=== PATIENT | male | born 1950 | race Caucasian/White ===

== ENCOUNTER 2017-07-12 13:33 | Inpatient (IN) | payer MEDICARE ==
[~2017-07-12] VITALS: Ht 195.6 cm; Wt 88.4 kg
[2017-07-12 15:01] LABS: Basophils # (auto) 0 uL; Basophils % (auto) 0.7 % (0.0-2.0); Eosinophils # (auto) 0.1 uL; Eosinophils % (auto) 1.2 % (0.0-7.0); Hemoglobin 16.5 g/dL (13.5-17.5); Lymphocytes # (auto) 0.3 uL; Mean Corpuscular Hemoglobin 32.1 pg (28.0-32.0); Mean Corpuscular Hgb Conc. 34.3 g/dL (32.0-36.0); Mean Corpuscular Volume 93.5 fL (80.0-100.0); Monocytes # (auto) 0.7 uL; Monocytes % (auto) 9.9 % (0.0-12.0); Neutrophils # (auto) 5.6 uL; Neutrophils % (auto) 84.2 % (37.0-80.0); Nucleated Red Blood Cells % 0.1 %; Platelet Count (auto) 124 10^3/uL (140-450); Red Blood Cells 5.13 10^6/uL (4.5-5.90); Red Cell Distribution Width 13.3 % (11.8-14.3); White Blood Cell 6.7 10^3/uL (4.4-10.8)
[2017-07-12 15:38] LABS: Albumin 4.2 g/dL (3.4-5.0); BUN/Creatinine Ratio 12.8; Bilirubin, Total 1.3 mg/dL (0.2-1.0); Calcium 8.6 mg/dL (8.5-10.1); Magnesium 2.2 mg/dL (1.6-2.6); Total Protein 8.5 g/dL (6.4-8.2)
[2017-07-12 16:42] LABS: Urine Bacteria NONE SEEN /hpf (None Seen); Urine Blood Negative /uL (Negative); Urine Mucus FEW (None Seen); Urine Specific Gravity 1.019 (1.001-1.035); Urine WBC 1 /hpf (0 - 3)
[2017-07-12] MEDS ORDERED: ASPirin-EC 81 mg tab PO ONE (16:45)
[2017-07-12] MEDS ORDERED: PROMETHAZINE HCL 25 MG/ML 1ML IV ONE (18:45)
[2017-07-12] MEDS ORDERED: ONDANSETRON HCL 4 MG/2 ML VIAL IV PRN (21:00)
[2017-07-12] MEDS ORDERED: MORPHINE SULFATE 4 MG/ML SYR/VIAL IV PRN (21:00)
[2017-07-12] MEDS ORDERED: NITROGLYCERIN 0.4 MG SL TAB SL PRN (21:00)
[2017-07-12] MEDS ORDERED: HYDROcodone-ACET 5/325MG TAB PO PRN (21:00)
[2017-07-12] MEDS ORDERED: ACETAMINOPHEN 500 MG TAB PO PRN (21:00)
[2017-07-12] MEDS ORDERED: METOPROLOL TARTRATE 1MG/1ML-5ML VIAL IV PRN (23:00)
[2017-07-12] MEDS ORDERED: ENOXAPARIN SOD 100 MG/1 ML SYRINGE SC ONE (23:00)
[2017-07-13 05:00] VITALS: BP 138/85
[2017-07-13 06:14] LABS: Hematocrit 46.4 % (41.0-53.0); Mean Corpuscular Hemoglobin 32.2 pg (28.0-32.0); Mean Corpuscular Hgb Conc. 34.4 g/dL (32.0-36.0); Mean Corpuscular Volume 93.7 fL (80.0-100.0); Platelet Count (auto) 122 10^3/uL (140-450); Red Blood Cells 4.95 10^6/uL (4.5-5.90); Red Cell Distribution Width 13.8 % (11.8-14.3)
[2017-07-13] MEDS ORDERED: PNEUMOCOCCAL VACC POLYS 25 MCG/0.5 ML VIAL IM ONE (06:15)
[2017-07-13] MEDS ORDERED: INFLUENZA QUAD 2017-2018 0.5 ML SYRG IM ONE (06:15)
[2017-07-13 06:31] LABS: Band Neutrophils % (manual) 0; Basophils % (manual) 0 (0.0-2.0); Blast Cells 0; Eosinophils % (manual) 0 (0-7); Metamyelocytes % 0; Myelocytes % 0; Promyelocytes % 0; Reactive Lymphocytes 0
[2017-07-13 06:42] LABS: BUN/Creatinine Ratio 10.4; Calcium 8.6 mg/dL (8.5-10.1); Potassium 4.1 mmol/L (3.5-5.1)
[2017-07-13 06:58] LABS: Lymphocytes % (manual) 16 (10.0-50.0); Monocytes % (manual) 23 (0-12)
[2017-07-13 07:45] VITALS: BP 145/72
[2017-07-13 08:00] VITALS: BP 145/72
[2017-07-13] MEDS: APIXABAN 5 MG TAB PO SCH ×2 (16:22→22:34)
[2017-07-13] MEDS: METOPROLOL TARTRATE 25 MG TAB PO SCH ×2 (16:28→22:37)
[2017-07-13 17:03] VITALS: BP 140/88
[2017-07-13 20:00] VITALS: BP 130/73
[2017-07-13 21:57] VITALS: BP 130/73
[2017-07-14] VITALS (7 sets, daily range): BP systolic 91–125; BP diastolic 45–79
[2017-07-14] MEDS: APIXABAN 5 MG TAB PO SCH ×2 (09:26→22:10)
[2017-07-14] MEDS: METOPROLOL TARTRATE 25 MG TAB PO SCH (09:27)
[2017-07-14] MEDS ORDERED: MORPHINE SULFATE 10 MG/ML INJ 1ML SDV IV PRN (15:15)
[2017-07-14] MEDS ORDERED: METOPROLOL TARTRATE 25 MG TAB PO ONE (15:15)
[2017-07-14] MEDS: METOPROLOL SUCCINATE XL 50 MG TAB PO SCH ×2 (20:52→22:00)
[2017-07-15] VITALS (7 sets, daily range): BP systolic 109–136; BP diastolic 58–83
[2017-07-15 07:00] LABS: Basophils # (auto) 0 uL; Basophils % (auto) 0.9 % (0.0-2.0); Eosinophils # (auto) 0 uL; Eosinophils % (auto) 0.2 % (0.0-7.0); Hematocrit 47.7 % (41.0-53.0); Hemoglobin 16.3 g/dL (13.5-17.5); Lymphocytes # (auto) 1.2 uL; Lymphocytes % (auto) 25.5 % (10.0-50.0); Mean Corpuscular Hgb Conc. 34.2 g/dL (32.0-36.0); Mean Corpuscular Volume 93.6 fL (80.0-100.0); Monocytes # (auto) 0.8 uL; Monocytes % (auto) 17.5 % (0.0-12.0); Neutrophils # (auto) 2.7 uL; Neutrophils % (auto) 55.9 % (37.0-80.0); Nucleated Red Blood Cells % 0.3 %; Platelet Count (auto) 118 10^3/uL (140-450); Red Cell Distribution Width 13.4 % (11.8-14.3); White Blood Cell 4.8 10^3/uL (4.4-10.8)
[2017-07-15 07:27] LABS: Albumin 3.8 g/dL (3.4-5.0); BUN/Creatinine Ratio 18.8; Bilirubin, Total 0.9 mg/dL (0.2-1.0); Calcium 8.2 mg/dL (8.5-10.1); Magnesium 2.4 mg/dL (1.6-2.6); Phosphorus 3.8 mg/dL (2.5-4.90); Potassium 4.2 mmol/L (3.5-5.1)
[2017-07-15] MEDS: APIXABAN 5 MG TAB PO SCH ×2 (08:42→22:29)
[2017-07-15] MEDS: METOPROLOL SUCCINATE XL 50 MG TAB PO SCH ×2 (11:08→22:28)
[2017-07-16 05:00] VITALS: BP 104/64
[2017-07-16] MEDS: APIXABAN 5 MG TAB PO SCH ×2 (08:54→22:06)
[2017-07-16] MEDS: METOPROLOL SUCCINATE XL 50 MG TAB PO SCH ×2 (08:55→22:07)
[2017-07-16 08:58] VITALS: BP 116/70
[2017-07-16] MEDS ORDERED: LIDOCAINE VISCOUS 2% 15ML UD PO ONE (10:00)
[2017-07-16] MEDS ORDERED: fentaNYL CITRATE 100 MCG/2 ML VL IV ONE (10:00)
[2017-07-16] MEDS ORDERED: diphenhdrAMINE HCL 50 MG/1 ML VL IV ONE (10:00)
[2017-07-16] MEDS ORDERED: BENZOCAINE (DENTAL) 20 % SPRAY 60ML MT ONE (10:00)
[2017-07-16] MEDS ORDERED: MIDAZOLAM HCL 1MG/1ML-2 ML VIAL IV ONE (10:00)
[2017-07-16] MEDS ORDERED: FLUMAZENIL 0.1 MG/ML INJ 10ML MDV IV ONE (10:10)
[2017-07-16] MEDS ORDERED: NALOXONE HCL 0.4 MG/ML VIAL ONE (10:10)
[2017-07-16 12:00] VITALS: BP 124/75
[2017-07-16 17:00] VITALS: BP 129/79
[2017-07-16 22:00] VITALS: BP 129/80
[2017-07-17 05:41] VITALS: BP 125/70
[2017-07-17 07:07] LABS: Cholesterol 113 mg/dL (< 200); HDL Cholesterol 23 mg/dL (40-59); LDL Cholesterol 86 mg/dL (< 100); Triglycerides 130 mg/dL (< 150)
[2017-07-17 08:00] VITALS: BP 109/51
[2017-07-17] MEDS ORDERED: OSELTAMIVIR 75 MG CAP PO SCH (10:00)
[2017-07-17] MEDS: METOPROLOL SUCCINATE XL 50 MG TAB PO SCH (10:39)
[2017-07-17] MEDS: APIXABAN 5 MG TAB PO SCH (10:39)
[2017-07-17 11:15] VITALS: BP 105/51
== END 2017-07-17 12:38 | disposition home or self-care (01) | DRG 682 ==
LOC: ER 13:33 → TELE 13:34 → EAST 22:35 → TELE-EAST 07-17 00:11
PROVIDERS: ADMIT Nurse Practitioner Family; ATTEND Family Medicine
PROC: 5A2204Z Restoration of Cardiac Rhythm, Single (ICD-10-PCS; principal; 2017-07-16)
DX: N17.0 Acute kidney failure with tubular necrosis (principal); I50.21 Acute systolic (congestive) heart failure; E44.0 Moderate protein-calorie malnutrition; D68.59 Other primary thrombophilia; I42.9 Cardiomyopathy, unspecified; I48.91 Unspecified atrial fibrillation; I48.92 Unspecified atrial flutter; E66.9 Obesity, unspecified; J10.1 Influenza due to other identified influenza virus with other respiratory manifestations; Z23 Encounter for immunization; I11.0 Hypertensive heart disease with heart failure; Z91.19 Patient's noncompliance with other medical treatment and regimen; Z83.3 Family history of diabetes mellitus; Z79.01 Long term (current) use of anticoagulants; Z68.23 Body mass index [BMI] 23.0-23.9, adult
CPT/HCPCS: 36415; 71010; 80048; 80053; 80061; 81001; 83605; 83735; 83880; 84100; 84484; 85007; 85025; 85027; 87040; 87400; 93005; 93306; 93312; 94761; 96374; 99152; J2250

== ENCOUNTER 2017-08-12 12:39 | Inpatient (IN) | payer MEDICARE ==
[~2017-08-12] VITALS: Ht 195.6 cm; Wt 98.5 kg
[2017-08-12 13:25] LABS: Basophils # (auto) 0 uL; Basophils % (auto) 0.3 % (0.0-2.0); Eosinophils # (auto) 0 uL; Eosinophils % (auto) 0.1 % (0.0-7.0); Hematocrit 42.3 % (41.0-53.0); Hemoglobin 14.8 g/dL (13.5-17.5); Lymphocytes # (auto) 0.4 uL; Lymphocytes % (auto) 5.9 % (10.0-50.0); Mean Corpuscular Hemoglobin 31.8 pg (28.0-32.0); Mean Corpuscular Hgb Conc. 34.9 g/dL (32.0-36.0); Mean Corpuscular Volume 91.1 fL (80.0-100.0); Monocytes # (auto) 0.7 uL; Monocytes % (auto) 9.8 % (0.0-12.0); Neutrophils # (auto) 6.1 uL; Neutrophils % (auto) 83.9 % (37.0-80.0); Platelet Count (auto) 145 10^3/uL (140-450); Red Blood Cells 4.64 10^6/uL (4.5-5.90); Red Cell Distribution Width 12.8 % (11.8-14.3); White Blood Cell 7.2 10^3/uL (4.4-10.8)
[2017-08-12 13:40] LABS: INR 1.03 (0.9-1.15); Partial Thromboplastin Time 29.7 sec (22.64-33.71); Prothrombin Time 11.2 sec (9.37-12.3)
[2017-08-12 13:49] LABS: Albumin 3.3 g/dL (3.4-5.0); BUN/Creatinine Ratio 14.2; Bilirubin, Total 2.7 mg/dL (0.2-1.0); Calcium 8.6 mg/dL (8.5-10.1); Potassium 3.8 mmol/L (3.5-5.1); Total Protein 8.7 g/dL (6.4-8.2)
[2017-08-12] MEDS ORDERED: ONDANSETRON HCL 4 MG/2 ML VIAL IV ONE (14:45)
[2017-08-12] MEDS ORDERED: PANTOPRAZOLE 40 MG/10 ML VIAL IV ONE (14:45)
[2017-08-12] MEDS ORDERED: HYDROmorphone HCL 2 MG/ML VL IV ONE (14:45)
[2017-08-12] MEDS ORDERED: cefTRIAXone 1GM/10ml IVPUSH 10 ML IV ONE (15:00)
[2017-08-12] MEDS ORDERED: ONDANSETRON HCL 4 MG/2 ML VIAL IV PRN (15:15)
[2017-08-12] MEDS ORDERED: HYDROcodone-ACET 5/325MG TAB PO PRN (15:15)
[2017-08-12] MEDS ORDERED: DOCUSATE SOD 100 MG CAP PO PRN (15:15)
[2017-08-12] MEDS ORDERED: ACETAMINOPHEN 325 MG TAB PO PRN (15:15)
[2017-08-12] MEDS ORDERED: TEMAZEPAM 15 MG CAP PO PRN (15:15)
[2017-08-12] MEDS ORDERED: NITROGLYCERIN 0.4 MG SL TAB SL PRN (15:15)
[2017-08-12] MEDS ORDERED: MORPHINE SULF INJ 2 MG/ML SYRINGE 1ML IV PRN ×2 (15:15→15:30)
[2017-08-12] MEDS ORDERED: FAMOTIDINE 20 MG TAB PO SCH (15:30)
[2017-08-12] MEDS: PANTOPRAZOLE 40 MG/10 ML VIAL IV SCH (15:45)
[2017-08-12] MEDS: SODIUM CHLORIDE 0.9% 1,000 ML IV SCH ×2 (15:47→23:25)
[2017-08-12] MEDS: metroNIDAZOLE 500MG/100ML 100 ML IV SCH ×2 (16:32→23:50)
[2017-08-12] MEDS: BOOST PLUS 8 ounce PO SCH (18:00)
[2017-08-12] MEDS ORDERED: VANCOMYCIN PER PHARMACY 0 MG IV SCH (18:30)
[2017-08-12] MEDS ORDERED: VANCOMYCIN 1,500 MG in D5W 5% 250 ML IV ONE (20:30)
[2017-08-13 05:00] VITALS: BP 123/70
[2017-08-13 06:25] LABS: Hematocrit 37.8 % (41.0-53.0); Hemoglobin 13.1 g/dL (13.5-17.5); Mean Corpuscular Hemoglobin 31.9 pg (28.0-32.0); Mean Corpuscular Hgb Conc. 34.7 g/dL (32.0-36.0); Mean Corpuscular Volume 91.7 fL (80.0-100.0); Platelet Count (auto) 117 10^3/uL (140-450); Red Blood Cells 4.12 10^6/uL (4.5-5.90); Red Cell Distribution Width 12.8 % (11.8-14.3); White Blood Cell 6.3 10^3/uL (4.4-10.8)
[2017-08-13 06:39] LABS: Band Neutrophils % (manual) 0; Basophils % (manual) 0 (0.0-2.0); Blast Cells 0; Eosinophils % (manual) 0 (0-7); Metamyelocytes % 0; Myelocytes % 0; Promyelocytes % 0; Reactive Lymphocytes 0
[2017-08-13 07:04] LABS: Albumin 2.6 g/dL (3.4-5.0); BUN/Creatinine Ratio 13.2; Bilirubin, Total 1.9 mg/dL (0.2-1.0); Calcium 7.7 mg/dL (8.5-10.1); Potassium 3.8 mmol/L (3.5-5.1); Total Protein 7.2 g/dL (6.4-8.2)
[2017-08-13 08:00] VITALS: BP 111/52
[2017-08-13] MEDS: metroNIDAZOLE 500MG/100ML 100 ML IV SCH ×2 (08:09→18:01)
[2017-08-13] MEDS: BOOST PLUS 8 ounce PO SCH ×3 (08:09→17:43)
[2017-08-13] MEDS: SODIUM CHLORIDE 0.9% 1,000 ML IV SCH ×2 (08:09→16:05)
[2017-08-13 09:00] VITALS: BP 111/52
[2017-08-13] MEDS: cefTRIAXone 1GM/10ml IVPUSH 10 ML IV SCH (09:57)
[2017-08-13] MEDS: VANCOMYCIN 1GM/250ML 250 ML IV SCH ×2 (09:57→20:58)
[2017-08-13] MEDS: MULTIPLE VITAMIN TAB PO SCH (10:34)
[2017-08-13] MEDS: PANTOPRAZOLE 40 MG/10 ML VIAL IV SCH (10:35)
[2017-08-13 13:00] VITALS: BP 123/65
[2017-08-13 14:45] LABS: Lymphocytes % (manual) 11 (10.0-50.0)
[2017-08-13 14:46] LABS: Monocytes % (manual) 18 (0-12)
[2017-08-13 17:00] VITALS: BP 136/83
[2017-08-13 22:19] VITALS: BP 122/70
[2017-08-14] VITALS (7 sets, daily range): BP systolic 120–145; BP diastolic 65–83
[2017-08-14] MEDS: SODIUM CHLORIDE 0.9% 1,000 ML IV SCH ×3 (00:01→16:46)
[2017-08-14 04:50] LABS: Urine Bacteria NONE SEEN /hpf (None Seen); Urine Blood Negative /uL (Negative); Urine Mucus FEW (None Seen); Urine Specific Gravity 1.019 (1.001-1.035); Urine WBC 3 /hpf (0 - 3)
[2017-08-14 05:23] LABS: Hematocrit 36.6 % (41.0-53.0); Hemoglobin 12.7 g/dL (13.5-17.5); Mean Corpuscular Hemoglobin 31.7 pg (28.0-32.0); Mean Corpuscular Hgb Conc. 34.7 g/dL (32.0-36.0); Mean Corpuscular Volume 91.5 fL (80.0-100.0); Platelet Count (auto) 118 10^3/uL (140-450); White Blood Cell 6.3 10^3/uL (4.4-10.8)
[2017-08-14 06:07] LABS: Band Neutrophils % (manual) 0; Basophils % (manual) 0 (0.0-2.0); Blast Cells 0; Eosinophils % (manual) 0 (0-7); Metamyelocytes % 0; Myelocytes % 0; Promyelocytes % 0; Reactive Lymphocytes 0
[2017-08-14 06:22] LABS: Albumin 2.6 g/dL (3.4-5.0); BUN/Creatinine Ratio 11.8; Bilirubin, Total 1.6 mg/dL (0.2-1.0); Calcium 7.6 mg/dL (8.5-10.1); Potassium 3.6 mmol/L (3.5-5.1); Total Protein 7.1 g/dL (6.4-8.2)
[2017-08-14] MEDS: BOOST PLUS 8 ounce PO SCH ×3 (08:00→18:00)
[2017-08-14 08:03] LABS: Lymphocytes % (manual) 12 (10.0-50.0); Monocytes % (manual) 11 (0-12)
[2017-08-14] MEDS: metroNIDAZOLE 500MG/100ML 100 ML IV SCH ×2 (09:13)
[2017-08-14] MEDS: cefTRIAXone 1GM/10ml IVPUSH 10 ML IV SCH (09:14)
[2017-08-14] MEDS: MULTIPLE VITAMIN TAB PO SCH (09:15)
[2017-08-14] MEDS: PANTOPRAZOLE 40 MG/10 ML VIAL IV SCH (09:15)
[2017-08-14] MEDS: metroNIDAZOLE 500 MG TAB PO SCH (22:09)
[2017-08-15] MEDS: SODIUM CHLORIDE 0.9% 1,000 ML IV SCH ×3 (01:25→17:36)
[2017-08-15 04:46] VITALS: BP 114/57
[2017-08-15] MEDS: metroNIDAZOLE 500 MG TAB PO SCH ×3 (05:50→22:00)
[2017-08-15 06:01] LABS: Albumin 2.6 g/dL (3.4-5.0); BUN/Creatinine Ratio 12.5; Potassium 3.6 mmol/L (3.5-5.1)
[2017-08-15 06:09] LABS: Bilirubin, Total 1.9 mg/dL (0.2-1.0)
[2017-08-15] MEDS: BOOST PLUS 8 ounce PO SCH ×3 (08:00→17:35)
[2017-08-15 08:51] VITALS: BP 118/67
[2017-08-15] MEDS: PANTOPRAZOLE 40 MG/10 ML VIAL IV SCH (09:26)
[2017-08-15] MEDS: cefTRIAXone 1GM/10ml IVPUSH 10 ML IV SCH (09:26)
[2017-08-15] MEDS: MULTIPLE VITAMIN TAB PO SCH (09:26)
[2017-08-15 11:24] VITALS: BP 141/76
[2017-08-15 16:41] VITALS: BP 120/69
[2017-08-15] MEDS ORDERED: MORPHINE SULFATE 4 MG/ML SYR/VIAL IV PRN ×2 (20:15)
[2017-08-15 22:32] VITALS: BP 116/69
[2017-08-16] MEDS: SODIUM CHLORIDE 0.9% 1,000 ML IV SCH (02:25)
[2017-08-16 05:10] VITALS: BP 128/75
[2017-08-16] MEDS: metroNIDAZOLE 500 MG TAB PO SCH (06:26)
[2017-08-16 08:09] LABS: BUN/Creatinine Ratio 8.8; Calcium 7.3 mg/dL (8.5-10.1); Potassium 3.2 mmol/L (3.5-5.1)
[2017-08-16 08:15] LABS: Basophils # (auto) 0 uL; Basophils % (auto) 0.3 % (0.0-2.0); Eosinophils # (auto) 0.1 uL; Eosinophils % (auto) 1.3 % (0.0-7.0); Hematocrit 35.7 % (41.0-53.0); Hemoglobin 12.2 g/dL (13.5-17.5); Lymphocytes # (auto) 1.2 uL; Lymphocytes % (auto) 17.6 % (10.0-50.0); Mean Corpuscular Hemoglobin 31.4 pg (28.0-32.0); Mean Corpuscular Hgb Conc. 34.1 g/dL (32.0-36.0); Mean Corpuscular Volume 92.1 fL (80.0-100.0); Monocytes # (auto) 0.8 uL; Neutrophils # (auto) 4.8 uL; Neutrophils % (auto) 69.8 % (37.0-80.0); Platelet Count (auto) 181 10^3/uL (140-450); Red Blood Cells 3.87 10^6/uL (4.5-5.90); Red Cell Distribution Width 13.3 % (11.8-14.3); White Blood Cell 6.9 10^3/uL (4.4-10.8)
[2017-08-16 08:18] LABS: Amylase 1188 U/L (25-115); Lipase 29229 U/L (73-393)
[2017-08-16 09:00] VITALS: BP 139/92
[2017-08-16] MEDS: cefTRIAXone 1GM/10ml IVPUSH 10 ML IV SCH (09:16)
[2017-08-16] MEDS: PANTOPRAZOLE 40 MG/10 ML VIAL IV SCH (09:16)
[2017-08-16] MEDS: MULTIPLE VITAMIN TAB PO SCH (09:16)
[2017-08-16] MEDS: BOOST PLUS 8 ounce PO SCH (09:17)
[2017-08-16 12:30] VITALS: BP 139/92
== END 2017-08-16 13:00 | disposition home or self-care (01) | DRG 871 ==
LOC: ER 12:39 → TELE 12:40 → TELE-WESTW 23:04 → WEST WING 08-15 09:45
PROVIDERS: ADMIT Internal Medicine; ATTEND Internal Medicine Pulmonary Disease
DX: A41.9 Sepsis, unspecified organism (principal); K85.10 Biliary acute pancreatitis without necrosis or infection; E44.0 Moderate protein-calorie malnutrition; K80.66 Calculus of gallbladder and bile duct with acute and chronic cholecystitis without obstruction; N18.3 Chronic kidney disease, stage 3 (moderate); E11.22 Type 2 diabetes mellitus with diabetic chronic kidney disease; E87.1 Hypo-osmolality and hyponatremia; N39.0 Urinary tract infection, site not specified; I50.9 Heart failure, unspecified; K40.20 Bilateral inguinal hernia, without obstruction or gangrene, not specified as recurrent; I25.10 Atherosclerotic heart disease of native coronary artery without angina pectoris; I25.2 Old myocardial infarction; I70.0 Atherosclerosis of aorta; K44.9 Diaphragmatic hernia without obstruction or gangrene; K82.8 Other specified diseases of gallbladder; N28.1 Cyst of kidney, acquired; Z82.49 Family history of ischemic heart disease and other diseases of the circulatory system; Z83.3 Family history of diabetes mellitus; Z79.899 Other long term (current) drug therapy; Z79.82 Long term (current) use of aspirin; Z68.25 Body mass index [BMI] 25.0-25.9, adult; R31.9 Hematuria, unspecified
CPT/HCPCS: 36415; 74176; 74181; 76705; 80048; 80053; 80202; 81001; 82150; 83605; 83690; 83735; 83880; 84478; 85007; 85025; 85027; 85610; 85730; 87040; 87081; 87086; 93005; 94761; 96374; 96375; C9113; J2405; J3490; J7060

== ENCOUNTER 2017-10-11 11:21 | Inpatient (IN) | payer MEDICARE ==
[~2017-10-11] VITALS: Ht 195.6 cm; Wt 118.1 kg
[2017-10-11] MEDS ORDERED: SODIUM CHLORIDE 0.9% 1,000 ML IV ONE (11:35)
[2017-10-11] MEDS ORDERED: ONDANSETRON HCL 4 MG/2 ML VIAL IV ONE (11:45)
[2017-10-11] MEDS ORDERED: NALBUPHINE HCL 10 MG/1ml INJECTION IV ONE (11:45)
[2017-10-11 12:10] LABS: Basophils # (auto) 0 uL; Basophils % (auto) 0.2 % (0.0-2.0); Eosinophils # (auto) 0 uL; Eosinophils % (auto) 0.1 % (0.0-7.0); Hematocrit 49.1 % (41.0-53.0); Hemoglobin 16.3 g/dL (13.5-17.5); Lymphocytes # (auto) 0.4 uL; Lymphocytes % (auto) 2.8 % (10.0-50.0); Mean Corpuscular Hemoglobin 30.7 pg (28.0-32.0); Mean Corpuscular Hgb Conc. 33.1 g/dL (32.0-36.0); Mean Corpuscular Volume 92.6 fL (80.0-100.0); Monocytes # (auto) 0.8 uL; Monocytes % (auto) 5.6 % (0.0-12.0); Neutrophils # (auto) 13.6 uL; Neutrophils % (auto) 91.3 % (37.0-80.0); Platelet Count (auto) 170 10^3/uL (140-450); Red Cell Distribution Width 13.9 % (11.8-14.3); White Blood Cell 14.9 10^3/uL (4.4-10.8)
[2017-10-11 12:24] LABS: INR 1.02 (0.9-1.15); Partial Thromboplastin Time 23.8 sec (22.64-33.71); Prothrombin Time 11.1 sec (9.37-12.3)
[2017-10-11 12:28] LABS: Urine Bacteria NONE SEEN /hpf (None Seen); Urine Blood Negative /uL (Negative); Urine Mucus FEW (None Seen); Urine Specific Gravity 1.011 (1.001-1.035); Urine WBC 1 /hpf (0 - 3)
[2017-10-11 12:33] LABS: Albumin 4.2 g/dL (3.4-5.0); BUN/Creatinine Ratio 13.2; Bilirubin, Total 4.3 mg/dL (0.2-1.0); Calcium 8.8 mg/dL (8.5-10.1); Potassium 4.4 mmol/L (3.5-5.1); Total Protein 8.7 g/dL (6.4-8.2)
[2017-10-11] MEDS ORDERED: PIPERACILLIN-TAZOB 3.375GM 100 ML IV ONE (13:15)
[2017-10-11] MEDS ORDERED: VANCOMYCIN 1GM/250ML 250 ML IV ONE (13:15)
[2017-10-11] MEDS ORDERED: SODIUM CHLORIDE 0.9% 1,000 ML IV SCH (13:41)
[2017-10-11] MEDS ORDERED: LORazepam 2MG/ML-1ML VIAL IV PRN (13:45)
[2017-10-11] MEDS ORDERED: cefTRIAXone 1GM/10ml IVPUSH 10 ML IV ONE (13:45)
[2017-10-11] MEDS ORDERED: MORPHINE SULFATE 4 MG/ML SYR/VIAL IV PRN ×3 (13:45)
[2017-10-11] MEDS ORDERED: NITROGLYCERIN 0.4 MG SL TAB SL PRN (13:45)
[2017-10-11] MEDS ORDERED: PROMETHAZINE HCL 25 MG/ML 1ML IV PRN (13:45)
[2017-10-11] MEDS ORDERED: PANTOPRAZOLE 40 MG/10 ML VIAL IV ONE (13:45)
[2017-10-11] MEDS: metroNIDAZOLE 500MG/100ML 100 ML IV SCH ×2 (16:35→21:46)
[2017-10-11 17:30] VITALS: BP 134/61
[2017-10-11 17:35] VITALS: BP 134/61
[2017-10-11] MEDS: LACTATED RINGER'S 1,000 ML IV SCH (17:44)
[2017-10-11 20:00] VITALS: BP 142/64
[2017-10-11 21:37] VITALS: BP 142/69
[2017-10-12] MEDS: LACTATED RINGER'S 1,000 ML IV SCH ×3 (00:36→19:25)
[2017-10-12 05:14] VITALS: BP 127/82
[2017-10-12] MEDS: metroNIDAZOLE 500MG/100ML 100 ML IV SCH ×3 (05:48→21:33)
[2017-10-12 06:51] LABS: Basophils # (auto) 0 uL; Basophils % (auto) 0.2 % (0.0-2.0); Eosinophils # (auto) 0 uL; Eosinophils % (auto) 0.3 % (0.0-7.0); Hematocrit 44.3 % (41.0-53.0); Hemoglobin 15.1 g/dL (13.5-17.5); Lymphocytes # (auto) 0.7 uL; Lymphocytes % (auto) 6.7 % (10.0-50.0); Mean Corpuscular Hemoglobin 31.9 pg (28.0-32.0); Mean Corpuscular Hgb Conc. 34.2 g/dL (32.0-36.0); Mean Corpuscular Volume 93.2 fL (80.0-100.0); Monocytes # (auto) 0.7 uL; Neutrophils # (auto) 9.4 uL; Neutrophils % (auto) 86.8 % (37.0-80.0); Platelet Count (auto) 136 10^3/uL (140-450); Red Blood Cells 4.75 10^6/uL (4.5-5.90); Red Cell Distribution Width 14.2 % (11.8-14.3); White Blood Cell 10.8 10^3/uL (4.4-10.8)
[2017-10-12 07:12] LABS: Albumin 3.7 g/dL (3.4-5.0); BUN/Creatinine Ratio 11.8; Bilirubin, Total 3.4 mg/dL (0.2-1.0); Calcium 8.2 mg/dL (8.5-10.1); Total Protein 7.6 g/dL (6.4-8.2)
[2017-10-12 08:16] VITALS: BP 135/80
[2017-10-12] MEDS: cefTRIAXone 1GM/10ml IVPUSH 10 ML IV SCH (09:59)
[2017-10-12] MEDS: PANTOPRAZOLE 40 MG/10 ML VIAL IV SCH (10:00)
[2017-10-12 12:47] VITALS: BP 131/65
[2017-10-12 16:30] VITALS: BP 129/79
[2017-10-12 20:00] VITALS: BP 138/84
[2017-10-12 22:00] VITALS: BP 138/84
[2017-10-13] MEDS: LACTATED RINGER'S 1,000 ML IV SCH ×4 (02:05→22:05)
[2017-10-13 04:45] VITALS: BP 136/79
[2017-10-13] MEDS: metroNIDAZOLE 500MG/100ML 100 ML IV SCH ×3 (05:40→23:01)
[2017-10-13 07:28] LABS: Albumin 3.5 g/dL (3.4-5.0); Calcium 8.8 mg/dL (8.5-10.1); Potassium 3.6 mmol/L (3.5-5.1)
[2017-10-13 07:31] LABS: BUN/Creatinine Ratio 12.8; Bilirubin, Total 2.1 mg/dL (0.2-1.0); Total Protein 7.6 g/dL (6.4-8.2)
[2017-10-13 08:00] VITALS: BP 143/76
[2017-10-13] MEDS: PANTOPRAZOLE 40 MG/10 ML VIAL IV SCH (10:10)
[2017-10-13] MEDS: cefTRIAXone 1GM/10ml IVPUSH 10 ML IV SCH (10:10)
[2017-10-13 13:11] VITALS: BP 133/85
[2017-10-13 16:37] VITALS: BP 140/83
[2017-10-13 20:00] VITALS: BP 154/87
[2017-10-13 21:39] VITALS: BP 154/87
[2017-10-14] VITALS (7 sets, daily range): BP systolic 127–158; BP diastolic 64–82
[2017-10-14] MEDS: LACTATED RINGER'S 1,000 ML IV SCH ×3 (01:02→23:44)
[2017-10-14] MEDS: metroNIDAZOLE 500MG/100ML 100 ML IV SCH ×3 (06:26→21:33)
[2017-10-14] MEDS: cefTRIAXone 1GM/10ml IVPUSH 10 ML IV SCH (08:30)
[2017-10-14] MEDS: PANTOPRAZOLE 40 MG/10 ML VIAL IV SCH (10:11)
[2017-10-15 05:00] VITALS: BP 144/89
[2017-10-15] MEDS: metroNIDAZOLE 500MG/100ML 100 ML IV SCH (05:58)
[2017-10-15 06:58] LABS: Albumin 3.3 g/dL (3.4-5.0); Bilirubin, Total 1.2 mg/dL (0.2-1.0); Calcium 8.1 mg/dL (8.5-10.1); Magnesium 1.9 mg/dL (1.6-2.6); Potassium 3.7 mmol/L (3.5-5.1); Total Protein 7.2 g/dL (6.4-8.2)
[2017-10-15 07:09] LABS: Basophils # (auto) 0.1 uL; Basophils % (auto) 0.8 % (0.0-2.0); Eosinophils # (auto) 0.3 uL; Eosinophils % (auto) 3.3 % (0.0-7.0); Hemoglobin 13.3 g/dL (13.5-17.5); Lymphocytes # (auto) 1.2 uL; Lymphocytes % (auto) 13.1 % (10.0-50.0); Mean Corpuscular Hemoglobin 32.1 pg (28.0-32.0); Mean Corpuscular Hgb Conc. 34.9 g/dL (32.0-36.0); Mean Corpuscular Volume 92.1 fL (80.0-100.0); Monocytes # (auto) 0.9 uL; Monocytes % (auto) 10.3 % (0.0-12.0); Neutrophils # (auto) 6.4 uL; Neutrophils % (auto) 72.5 % (37.0-80.0); Nucleated Red Blood Cells % 0.3 %; Platelet Count (auto) 160 10^3/uL (140-450); Red Blood Cells 4.13 10^6/uL (4.5-5.90); Red Cell Distribution Width 13.5 % (11.8-14.3); White Blood Cell 8.8 10^3/uL (4.4-10.8)
[2017-10-15 07:35] VITALS: BP 146/82
[2017-10-15] MEDS: PANTOPRAZOLE 40 MG/10 ML VIAL IV SCH (10:00)
[2017-10-15 11:36] VITALS: BP 148/85
[2017-10-15] MEDS: LACTATED RINGER'S 1,000 ML IV SCH (11:52)
[2017-10-15] MEDS: cefTRIAXone 1GM/10ml IVPUSH 10 ML IV SCH (11:54)
== END 2017-10-15 15:30 | disposition home or self-care (01) | DRG 439 ==
LOC: ER 11:21 → TELE 11:22 → TELE-WESTW 17:12
PROVIDERS: ADMIT Internal Medicine; ATTEND Internal Medicine
DX: K85.10 Biliary acute pancreatitis without necrosis or infection (principal); I42.9 Cardiomyopathy, unspecified; I50.9 Heart failure, unspecified; I48.92 Unspecified atrial flutter; E11.9 Type 2 diabetes mellitus without complications; K80.20 Calculus of gallbladder without cholecystitis without obstruction; I25.10 Atherosclerotic heart disease of native coronary artery without angina pectoris; K40.20 Bilateral inguinal hernia, without obstruction or gangrene, not specified as recurrent
CPT/HCPCS: 36415; 71045; 71250; 73560; 74176; 74181; 76705; 80053; 81001; 82150; 83605; 83690; 83735; 84484; 85025; 85610; 85730; 87040; 93005; 96361; 96365; 96375; C9113; J2405; J2543; J3490

== ENCOUNTER 2017-10-16 12:49 | Emergency (ER) | payer MEDICARE ==
[~2017-10-16] VITALS: Ht 195.6 cm; Wt 115.7 kg
[2017-10-16] MEDS ORDERED: SODIUM CHLORIDE 0.9% 1,000 ML IV ONE (17:32)
[2017-10-16] MEDS ORDERED: METOCLOPRAMIDE HCL 5MG/ml INJ 2ml VIAL IV ONE (17:45)
[2017-10-16] MEDS ORDERED: KETOROLAC TROMETH 30 MG/ML 1ML VIAL IV ONE (17:45)
[2017-10-16 18:16] LABS: Basophils # (auto) 0.1 uL; Basophils % (auto) 0.4 % (0.0-2.0); Eosinophils # (auto) 0 uL; Eosinophils % (auto) 0.2 % (0.0-7.0); Hematocrit 45.6 % (41.0-53.0); Hemoglobin 15.4 g/dL (13.5-17.5); Lymphocytes # (auto) 0.9 uL; Lymphocytes % (auto) 7.1 % (10.0-50.0); Mean Corpuscular Hemoglobin 31.5 pg (28.0-32.0); Mean Corpuscular Hgb Conc. 33.8 g/dL (32.0-36.0); Mean Corpuscular Volume 93.2 fL (80.0-100.0); Monocytes # (auto) 1.2 uL; Monocytes % (auto) 10.1 % (0.0-12.0); Neutrophils % (auto) 82.2 % (37.0-80.0); Platelet Count (auto) 213 10^3/uL (140-450); Red Cell Distribution Width 13.5 % (11.8-14.3); White Blood Cell 12.2 10^3/uL (4.4-10.8)
[2017-10-16 18:35] LABS: Albumin 3.8 g/dL (3.4-5.0); BUN/Creatinine Ratio 8.9; Bilirubin, Total 1.3 mg/dL (0.2-1.0); Calcium 8.4 mg/dL (8.5-10.1); Magnesium 2.4 mg/dL (1.6-2.6); Potassium 3.7 mmol/L (3.5-5.1); Uric Acid 7.2 mg/dL (3.5-7.2)
[2017-10-16 18:58] LABS: Urine Bacteria NONE SEEN /hpf (None Seen); Urine Blood 1+ /uL (Negative); Urine Mucus FEW (None Seen); Urine WBC 4 /hpf (0 - 3)
[2017-10-17] MEDS ORDERED: LORazepam 2MG/ML-1ML VIAL IV ONE (03:00)
[2017-10-17] MEDS ORDERED: LIDOCAINE 1% (LOCAL ANESTH.) PF 5ml SDV ONE (03:58)
[2017-10-17] MEDS ORDERED: NEOMYCIN-BACITRACIN-POLYM 15GM TOP OINT TOP ONE (04:27)
[2017-10-17] MEDS ORDERED: cefTRIAXone 1GM/10ml IVPUSH 10 ML IV ONE (05:00)
[2017-10-17 05:02] VITALS: BP 145/85
== END 2017-10-17 04:51 | disposition home or self-care (01) ==
LOC: ER 12:49 → EDBD 12:49 → ER 10-17 04:51
DX: M25.462 Effusion, left knee (principal); M25.461 Effusion, right knee; I48.91 Unspecified atrial fibrillation; I50.9 Heart failure, unspecified; I25.10 Atherosclerotic heart disease of native coronary artery without angina pectoris
CPT/HCPCS: 20610; 36415; 73562; 73700; 80053; 81001; 83735; 84550; 85025; 85379; 85652; 87205; 93005; 96361; 96374; 96375; 99285; J2060; J7030